=== PATIENT | female | born 1995 ===

== ENCOUNTER 2022-02-22 07:30 | Inpatient (IN) | payer OTHER ==
[~2022-02-22] VITALS: Ht 162.6 cm; Wt 64.9 kg
== END 2022-03-01 10:12 | disposition home or self-care (01) | DRG 743 ==
LOC: O/R 02-27 06:03 → OB/GYN 02-27 06:03 → SURH 02-27 07:30 → OB/GYN 02-27 09:15
PROVIDERS: ADMIT Obstetrics & Gynecology; ATTEND Obstetrics & Gynecology
PROC: 0UT10ZZ Resection of Left Ovary, Open Approach (ICD-10-PCS; 2022-02-27)
PROC: 0UT60ZZ Resection of Left Fallopian Tube, Open Approach (ICD-10-PCS; principal; 2022-02-27 09:15)
DX: D27.1 Benign neoplasm of left ovary (principal); Z20.822 Contact with and (suspected) exposure to COVID-19